=== PATIENT | female | born 1945 | race Caucasian/White ===

== ENCOUNTER 2017-04-21 01:31 | Emergency (ER) | payer MEDICARE ==
[~2017-04-21] VITALS: Ht 165.1 cm; Wt 65.9 kg
[2017-04-21 01:53] VITALS: TEMP 97.5
[2017-04-21 01:53] LABS: BASO % 0.4 % (0.0-2.0); GRAN # 2.9 (1.4-6.5); GRAN % 55.7 % (42.2-75.2); HEMATOCRIT 37.7 % (37.0-47.0); HEMOGLOBIN 12.1 g/dl (12.5-16.0); LYMPH # 1.9 (1.2-3.4); LYMPH % 35.7 % (20.0-51.0); MEAN CELL VOLUME 89 fl (80.0-100.0); MEAN CORPUSCULAR HEMOGLOBIN 29 pg (27.0-31.0); MEAN CORPUSCULAR HGB CONC 32 g/dl (33.0-37.0); MEAN PLATELET VOLUME 9.5 fl (7.4-10.4); MONO # 0.4 (0.1-0.6); MONO % 7.8 % (1.7-9.3); PLATELET COUNT 317 K/mm3 (130-400); RED BLOOD COUNT 4.23 M/mm3 (4.10-5.30); WHITE BLOOD COUNT 5.2 K/mm3 (4.8-10.8)
[2017-04-21 01:58] LABS: PROTHROMBIN TIME 11.8 SECONDS (9.7-12.8)
[2017-04-21 02:01] LABS: PARTIAL THROMBOPLASTIN TIME 28.5 SECONDS (26.0-37.0)
[2017-04-21] MEDS ORDERED: TOPROL XL 25MG25 MG PO (02:02)
[2017-04-21 02:03] LABS: ADJUSTED CALCIUM 9.1 mg/dL (8.4-10.2); ALBUMIN 4.6 gm/dL (3.5-5.0); BILIRUBIN,TOTAL 0.4 mg/dL (0.0-1.0); CALCIUM 9.6 mg/dL (8.4-10.2); CREATININE, serum 0.88 mg/dL (0.52-1.25); POTASSIUM 3.9 mmol/L (3.4-5.0)
[2017-04-21] MEDS ORDERED: TOPROL XL 50MG50 MG PO (02:03)
[2017-04-21] MEDS ORDERED: PRILOSEC 20MG20 MG PO (02:06)
[2017-04-21] MEDS ORDERED: PRINIVIL20 MG PO (02:06)
[2017-04-21 02:17] LABS: TROPONIN-I 0.172 ng/mL (0.000-0.034)
[2017-04-21 04:05] VITALS: BP 111/63; PULSE 69
== END 2017-04-21 03:40 | disposition short-term general hospital (02) ==
LOC: COL.ER 01:31
PROVIDERS: Emergency Medicine
DX: I20.9 Angina pectoris, unspecified (principal); I21.3 ST elevation (STEMI) myocardial infarction of unspecified site; I10 Essential (primary) hypertension; K21.9 Gastro-esophageal reflux disease without esophagitis; Z85.3 Personal history of malignant neoplasm of breast; Z87.442 Personal history of urinary calculi; Z90.11 Acquired absence of right breast and nipple; Z98.890 Other specified postprocedural states; Z87.891 Personal history of nicotine dependence
CPT/HCPCS: J1644; J3101; J7030